=== PATIENT | male | born 1960 | race Caucasian/White ===

== ENCOUNTER 2021-04-07 09:54 | Outpatient (CLI) | payer MEDICAID ==
[~2021-04-07] VITALS: Ht 165.1 cm; Wt 136.0 kg
[2021-04-07] MEDS ORDERED: normal saline 500ml IV soln 500 ML IV ONE (10:25)
[2021-04-07] MEDS ORDERED: regadenoson 0.4mg/5ml syringe IV PRN (10:25)
[2021-04-07] MEDS ORDERED: nitroGLYCERIN 0.4mg SUBLingual tab SL PRN (10:25)
[2021-04-07] MEDS ORDERED: metoprolol tartrate 1mg/ml inj IV PRN (10:25)
[2021-04-07] MEDS ORDERED: aminophylline 250mg/10ml inj. IV PRN (10:25)
[2021-04-07 11:28] VITALS: BP 123/61
[2021-04-07 11:45] VITALS: BP 132/79
[2021-04-07 11:46] VITALS: BP 141/77
[2021-04-07 11:47] VITALS: BP 132/76
[2021-04-07 11:48] VITALS: BP 127/73
[2021-04-07 11:49] VITALS: BP 133/73
== END 2021-04-07 23:59 | disposition home or self-care (01) ==
LOC: RAD 09:54
PROVIDERS: ATTEND Internal Medicine Cardiovascular Disease
DX: I34.0 Nonrheumatic mitral (valve) insufficiency (principal); E78.5 Hyperlipidemia, unspecified; R06.02 Shortness of breath
CPT/HCPCS: 78452; 93017; 93306; A9500; J2785; J7040

== ENCOUNTER 2021-09-01 06:07 | Day surgery (SDC) | payer MEDICAID ==
[2021-08-31 11:52] LABS: BASOPHILS # (AUTO) 0.1 X10'3 (0-0.2); BASOPHILS % (AUTO) 1.3 % (0-1); EOSINOPHILS # (AUTO) 0.4 X10'3 (0-0.9); EOSINOPHILS % (AUTO) 5.4 % (0-6); HEMATOCRIT 44.4 % (42.0-52.0); HEMOGLOBIN 15.7 g/dl (14.0-17.9); LYMPHOCYTES # (AUTO) 1.8 X10'3 (1.1-4.8); LYMPHOCYTES % (AUTO) 25.6 % (21-51); MEAN CORPUSCULAR HEMOGLOBIN 32.9 PG (27.0-31.0); MEAN CORPUSCULAR HGB CONC 35.3 g/dL (33.0-36.5); MEAN CORPUSCULAR VOLUME 93.2 FL (78-98); MEAN PLATELET VOLUME 7.5 FL (7.4-10.4); MONOCYTES # (AUTO) 0.8 X10'3 (0-0.9); MONOCYTES % (AUTO) 10.7 % (2-12); PLATELET COUNT 238 X10'3 (140-440); RED BLOOD COUNT 4.76 X10'6 (4.70-6.10); RED CELL DISTRIBUTION WIDTH 12.7 % (11.5-14.5)
[2021-08-31 11:54] LABS: PARTIAL THROMBOPLASTIN TIME 29 SECONDS (22-32)
[2021-08-31 12:07] LABS: ALBUMIN 3.8 G/DL (3.4-5.0); BLOOD UREA NITROGEN 14 MG/DL (7-18); CALCIUM 8.9 MG/DL (8.5-10.1); GLUCOSE 98 MG/DL (70-104); TOTAL CARBON DIOXIDE 26.6 MMOL/L (24-32); eGFR 76 ML/MIN
[2021-08-31 12:42] LABS: ANION GAP 9 (8-16); CHLORIDE 103 MMOL/L (99-107); POTASSIUM 3.8 MMOL/L (3.5-5.1); SODIUM 139 MMOL/L (135-145)
[2021-09-01] VITALS (10 sets, daily range): BP systolic 119–148; BP diastolic 57–88
[~2021-09-01] VITALS: Ht 170.2 cm; Wt 138.0 kg
[2021-09-01] MEDS ORDERED: LORazepam 0.5 MG tablet PO PRN (06:25)
[2021-09-01] MEDS ORDERED: diphenhydrAMINE 25mg capsule PO PRN (06:25)
[2021-09-01] MEDS ORDERED: normal saline 1,000 ML IV SCH (06:25)
[2021-09-01] MEDS ORDERED: LIDOcaine/PRILOcaine 5gm cream TP ONE (06:25)
[2021-09-01] MEDS ORDERED: ATEN-236 PO (06:28)
[2021-09-01] MEDS ORDERED: ATOR20TA66 PO (06:28)
[2021-09-01] MEDS ORDERED: ACET-890 PO (06:30)
[2021-09-01] MEDS ORDERED: IBUP-2697 PO (06:30)
[2021-09-01] MEDS ORDERED: verapamil 2.5 mg/ml inj IV ONE (07:27)
[2021-09-01] MEDS ORDERED: fentaNYL/PF 50MCG/1 ML 2ML syringe ONE (07:27)
[2021-09-01] MEDS ORDERED: midazolam 1 mg/ML 2ml injection ONE (07:27)
[2021-09-01] MEDS ORDERED: nitroGLYCERIN-Tridil 50MG/D5W 250 ML IV ONE (07:27)
[2021-09-01] MEDS ORDERED: heparin 1,000unit/ml 10ml vial 10 ML ONE (07:27)
[2021-09-01] MEDS ORDERED: iohexol 350 MG/ML 50ML vial IV ONE (07:28)
[2021-09-01] MEDS ORDERED: iohexol 350MG/ML 100ml bottle IV ONE (07:28)
[2021-09-01] MEDS ORDERED: LIDOcaine 1% (10mg/ml)w/preservative injection 20ml MDV ONE (07:36)
[2021-09-01] MEDS ORDERED: HYDROcodone/acetaminophen 5mg/325mg tablet PO PRN (09:10)
[2021-09-01] MEDS ORDERED: HYDROcodone/acetaminophen 10/325mg tab PO PRN (09:10)
[2021-09-01] MEDS ORDERED: aspirin 81mg tab.chew PO ONE (11:35)
== END 2021-09-01 13:55 | disposition home or self-care (01) ==
LOC: SSTAY O 06:07
PROVIDERS: ATTEND Internal Medicine Cardiovascular Disease
DX: R06.02 Shortness of breath (principal); R94.39 Abnormal result of other cardiovascular function study; I25.10 Atherosclerotic heart disease of native coronary artery without angina pectoris; E78.5 Hyperlipidemia, unspecified; G47.33 Obstructive sleep apnea (adult) (pediatric); E66.3 Overweight; Z68.42 Body mass index [BMI] 45.0-49.9, adult; Z88.0 Allergy status to penicillin; Z79.899 Other long term (current) drug therapy; Z82.3 Family history of stroke; Z83.3 Family history of diabetes mellitus; Z82.49 Family history of ischemic heart disease and other diseases of the circulatory system
CPT/HCPCS: 36415; 76937; 80048; 85025; 85610; 85730; 93005; 93458; 99152; C1894; J1644; J2250; J3010; J3490; J7030; Q0163; Q9967; 99153; A4620; A5120; A6258

== ENCOUNTER 2023-02-15 06:53 | Day surgery (SDC) | payer MEDICAID ==
[~2023-02-15] VITALS: Ht 167.6 cm; Wt 140.9 kg
[~2023-02-15 06:53] MED LIST: ACET-890 PO; ATEN-236 PO; ATOR20TA66 PO; IBUP-2697 PO
[2023-02-15 07:06] VITALS: BP 132/77
[2023-02-15] MEDS ORDERED: fentaNYL/PF 50MCG/1 ML 2ML syringe ONE (07:49)
[2023-02-15] MEDS ORDERED: MIDAZolam 1 MG/ML 5ML VIAL ONE (07:50)
[2023-02-15 09:16] VITALS: BP 119/64
--- NOTE | 2023-02-15 09:16 | NUR ---
POST PROCEDURE TIME WAS [id number]
[2023-02-15 09:26] VITALS: BP 117/64
[2023-02-15 09:36] VITALS: BP 120/65
[2023-02-15 09:41] VITALS: BP 119/64
[2023-02-15 09:46] VITALS: BP 116/73
== END 2023-02-15 10:09 | disposition home or self-care (01) ==
LOC: GI LAB 06:53
PROVIDERS: ATTEND Internal Medicine Gastroenterology
DX: Z12.11 Encounter for screening for malignant neoplasm of colon (principal); D12.2 Benign neoplasm of ascending colon; K57.30 Diverticulosis of large intestine without perforation or abscess without bleeding; E66.9 Obesity, unspecified; Z68.43 Body mass index [BMI] 50.0-59.9, adult; Z88.0 Allergy status to penicillin; Z86.010 Personal history of colon polyps
CPT/HCPCS: 45380; 45385; C1889; J2250; J3010; J7030; Z7512; 99152; 99153; A4620